=== PATIENT | female | born 2000 | race Caucasian/White ===

== ENCOUNTER 2019-01-12 10:42 | Emergency (ER) | payer BC ==
[~2019-01-12] VITALS: Ht 157.5 cm; Wt 50.5 kg
[2019-01-12] MEDS ORDERED: NS 1,000 ML IV ONE (11:15)
[2019-01-12 11:44] LABS: BASO % 0.6 % (0.0-1.0); EOS # 0.1 10^3/uL (0.0-0.50); EOS % 2.4 % (0.0-3.0); HEMATOCRIT 36.2 % (36.0-47.0); HEMOGLOBIN 12.5 g/dl (12.0-15.5); LYMPH # 2.1 10^3/uL (1.5-6.5); LYMPH % 41.4 % (24.0-44.0); MEAN CORPUSCULAR HEMOGLOBIN 33.2 pg (27.0-33.0); MEAN CORPUSCULAR HGB CONC 34.5 g/dl (32.0-36.5); MEAN CORPUSCULAR VOLUME 96.3 fl (80.0-96.0); MONO # 0.4 10^3/uL (0.0-0.8); MONO % 7.4 % (0.0-5.0); NEUTROPHILS # 2.4 10^3/uL (1.8-7.7); PLATELET COUNT, AUTOMATED 215 10^3/uL (150-450); RED BLOOD COUNT 3.76 10^6/uL (4.00-5.40)
[2019-01-12 12:16] LABS: ALBUMIN 4.1 GM/DL (3.2-5.2); ALT/SGPT 10 U/L (12-78); BILIRUBIN,DIRECT < 0.1 MG/DL (0.0-0.2); BILIRUBIN,TOTAL 0.3 MG/DL (0.2-1.0); BLOOD UREA NITROGEN 6 MG/DL (7-18); CALCIUM LEVEL 9.4 MG/DL (8.5-10.1); CARBON DIOXIDE LEVEL 28 MEQ/L (21-32); CHLORIDE LEVEL 109 MEQ/L (98-107); CREATININE FOR GFR 0.86 MG/DL (0.55-1.30); GLUCOSE, FASTING 88 MG/DL (70-100); LIPASE 73 U/L (73-393); POTASSIUM SERUM 3.9 MEQ/L (3.5-5.1); SODIUM LEVEL 142 MEQ/L (136-145); TOTAL PROTEIN 7.2 GM/DL (6.4-8.2)
[2019-01-12 12:58] VITALS: BP 125/80
--- NOTE | 2019-01-12 13:33 | REP ---
CT ABDOMEN PELVIS WITHOUT CONTRAST: 01/12/2019. Clinical history: Right flank pain. History of stones with prior lithotripsy and stent. I have no prior studies. Findings: Stone protocol utilized. CT abdomen lung bases were clear. Heart not enlarged. No pericardial thickening or effusion. No hiatal hernia. The liver, spleen, gallbladder, stomach, pancreas and adrenal glands are normal. Aorta is without aneurysm. No periaortic other retroperitoneal lymphadenopathy. Colon and small bowel loops in the abdomen proper were unremarkable. Kidneys show no evidence of a stone, mass or cyst. There is no perinephric edema. Extrarenal pelves are noted bilaterally. No gross evidence of hydroureter or ureteral stone. Bone windows show lumbar and lower thoracic spine, the visualized ribs and the posterior elements all intact. CT pelvis: The bony sacrum, SI joints, hips and ischia were unremarkable. The bladder shows no stone or mass. No visible ureteral dilatation or stone in the pelvis. There is a trace amount of free fluid in the cul-de-sac. Uterus is tilted. I could not exclude small ruptured ovarian cyst as source of this fluid. There is no fluid in the peroneal gutters. Appendix is seen and has a small amount of increased density suggesting an appendicolith on axial image 63. No inflammatory change or acute finding. No ventral or inguinal hernia nor pathologic sized inguinal adenopathy. Impression: 1. Extrarenal pelves without gross hydronephrosis or hydroureter. No renal, ureteral or bladder stone. 2. Small amount of free fluid in the pelvis. No gross pelvic mass but a small ruptured ovarian cyst is more likely than any other cause of this pelvic free fluid. There is no inflammatory change in the abdomen or pelvis involving bowel loops and the appendix is seen and without acute inflammatory change. Electronically Signed by Ab Oquendo MD 01/12/2019 09:55 P
== END 2019-01-12 13:58 | disposition home or self-care (01) ==
LOC: M ED 10:42
DX: N83.299 Other ovarian cyst, unspecified side (principal); F33.9 Major depressive disorder, recurrent, unspecified; F41.9 Anxiety disorder, unspecified; K21.9 Gastro-esophageal reflux disease without esophagitis; F17.210 Nicotine dependence, cigarettes, uncomplicated